=== PATIENT | female | born 1950 | race Caucasian/White ===

== ENCOUNTER 2018-02-19 08:04 | Emergency (ER) | payer OTHER, MEDICARE ==
[~2018-02-19] VITALS: Ht 177.8 cm; Wt 106.6 kg
[~2018-02-19 08:04] MED LIST: ASPIR 8181 M1 PO; CLEOCIN300 MG PO; ULTRAM50 MG PO
[2018-02-19 09:32] LABS: BASOPHIL (%) 0.3 % (0-1); EOSINOPHIL (%) 0 % (0-5); HEMATOCRIT 40.3 % (36.0-46.0); HEMOGLOBIN 13.7 G/DL (11.9-15.5); IMMATURE GRANULOCYTE (%) 0.5 % (0.0-0.7); LYMPHOCYTE (%) 7.7 % (15-42); LYMPHOCYTE COUNT 0.8 K/uL (1.0-2.8); MCV 94.2 FL (83-99); MONOCYTE (%) 4.9 % (3-12); MONOCYTE COUNT 0.5 K/uL (0-0.8); NEUTROPHIL (%) 86.6 % (45-76); NEUTROPHIL COUNT 9.1 K/uL (1.8-6.4); PLATELET COUNT 166 K/uL (156-360); RBC DIS.WIDTH-CV 13.7 % (11.8-14.6); RBC DIS.WIDTH-SD 47.1 % (39-53); RED BLOOD COUNT 4.28 M/uL (3.80-5.20); WHITE BLOOD COUNT 10.5 K/uL (4.1-10.2)
[2018-02-19 09:43] LABS: APPEARANCE SL.HAZY ((CLEAR)); BILIRUBIN NEGATIVE; BLOOD NEGATIVE; COLOR AMBER ((YELLOW)); GLUCOSE (STRIP) NEGATIVE; KETONES NEGATIVE; LEUKOCYTES MODERATE; NITRITE NEGATIVE; PROTEIN (STRIP) 30; SPECIFIC GRAVITY 1.027 (1.000-1.030); UROBILINOGEN 0.2 MG/DL (0.2-1.0)
[2018-02-19 09:47] LABS: ALBUMIN 3.6 g/dL (3.2-4.8)
[2018-02-19 09:48] LABS: CHLORIDE 107 mEq/L (99-109); POTASSIUM 4.1 mEq/L (3.7-5.4); SODIUM 141 mEq/L (136-147)
[2018-02-19 09:50] LABS: BACTERIA RARE /HPF; CALCIUM OXALATE CRYSTALS 2+ /HPF; EPITHELIAL CELLS 1+ /HPF; MUCUS 4+ /LPF; UCUL ADDED? YES; WHITE BLOOD CELLS 40-50 /HPF (0-5)
[2018-02-19 09:50] LABS: GLUCOSE 143 mg/dL (70-99); TOTAL PROTEIN 6.5 g/dL (6.4-8.3)
[2018-02-19 09:52] LABS: TOTAL BILIRUBIN 1.6 mg/dL (0.0-1.0)
[2018-02-19 09:53] LABS: ALKALINE PHOSPHATASE 63 IU/L (3-129)
[2018-02-19 09:54] LABS: GFR ESTIMATE (CALCULATED) 58 mL/min/
[2018-02-19 09:55] LABS: AST (GOT) 21 IU/L (2-34); UREA NITROGEN (BUN) 20 mg/dL (9-23)
[2018-02-19 09:56] LABS: ALT (GPT) 29 IU/L (3-49)
[2018-02-19 10:02] LABS: TROP-I INTERPRETATION NEGATIVE; TROPONIN-I < 0.01 ng/mL (0.0-0.30)
[2018-02-19] MEDS ORDERED: MACROBID100 MG PO (10:54)
[2018-02-19] MEDS ORDERED: ZOFRAN ODT4 MG PO (10:54)
[2018-02-19 11:10] VITALS: BP 112/55
== END 2018-02-19 11:12 | disposition home or self-care (01) ==
LOC: EME 08:04
PROVIDERS: Physician Assistant Medical
DX: R11.2 Nausea with vomiting, unspecified (principal); N39.0 Urinary tract infection, site not specified; Z79.82 Long term (current) use of aspirin; Z85.9 Personal history of malignant neoplasm, unspecified; Z90.49 Acquired absence of other specified parts of digestive tract; Z91.030 Bee allergy status
CPT/HCPCS: 74022; 80053; 81003; 83605; 84484; 85025; 87040; 87086; 93005; 99281; 99284; J2405; J7030

== ENCOUNTER 2018-04-24 23:01 | Emergency (ER) | payer OTHER, MEDICARE ==
[~2018-04-24] VITALS: Ht 177.8 cm; Wt 107.5 kg
[~2018-04-24 23:01] MED LIST changes: +MACROBID100 MG PO; +ZOFRAN ODT4 MG PO
[2018-04-25] MEDS ORDERED: EPIPEN ADU0.3 MG/0.3 IM (02:14)
[2018-04-25] MEDS ORDERED: PREDNISONE50 MG PO (02:14)
[2018-04-25] MEDS ORDERED: KEFLEX500 MG PO ×2 (02:17→02:18)
[2018-04-25 02:38] VITALS: BP 137/80
== END 2018-04-25 02:41 | disposition home or self-care (01) ==
LOC: EME 23:01
DX: R06.02 Shortness of breath (principal); J02.9 Acute pharyngitis, unspecified; T36.4X5A Adverse effect of tetracyclines, initial encounter; Z79.82 Long term (current) use of aspirin; Z85.820 Personal history of malignant melanoma of skin
CPT/HCPCS: 99281; 99284; J7512